=== PATIENT | male | born 1965 | race Caucasian/White ===

== ENCOUNTER 2019-08-23 11:56 | Emergency (ER) | payer OTHER ==
[~2019-08-23] VITALS: Ht 180.3 cm; Wt 81.6 kg
[2019-08-23 12:09] VITALS: BP_SYST 120
[2019-08-23] MEDS ORDERED: ALBU90AE INH (12:09)
[2019-08-23] MEDS ORDERED: ALBUTEROL SULFATE 0.083% 2.5 MG/3 ML VIAL.NEB INH ONE (12:15)
[2019-08-23] MEDS ORDERED: IPRATROPIUM BROM 0.5 MG/2.5 ML VIAL.NEB (ATROVENT) INH ONE (12:15)
[2019-08-23] MEDS ORDERED: PREDNISONE 20 MG TABLET PO ONE (12:15)
[2019-08-23 13:40] VITALS: BP_SYST 120
== END 2019-08-23 13:40 | disposition home or self-care (01) ==
LOC: SED 11:56
DX: J45.909 Unspecified asthma, uncomplicated (principal)
CPT/HCPCS: 71045; 99283; J7512; J7613

== ENCOUNTER 2022-02-17 14:58 | Emergency (ER) | payer OTHER ==
[~2022-02-17] VITALS: Ht 177.8 cm; Wt 74.8 kg
[~2022-02-17 14:58] MED LIST: ALBU90AE INH
[2022-02-17 15:12] VITALS: BP_SYST 159
--- NOTE | 2022-02-17 15:16 | NUR ---
Patient triaged and placed in waiting room. VSS and patient appears in no acute distress at this time. Accompanied by FRIEND, awaiting available bed, and MD notified of need for MSE.
[2022-02-17] MEDS ORDERED: ONDANSETRON 4 MG ODT TAB PO ONE (15:45)
[2022-02-17] MEDS ORDERED: OMEPRAZOLE Non-Formulary 20 MG CAPSULE.DR PO ONE (15:45)
[2022-02-17] MEDS ORDERED: MAG-AL HYDROX/SIMETH 30 ML UDC PO ONE (16:45)
[2022-02-17] MEDS ORDERED: DICYCLOMINE HCL 10 MG/5 ML SOLUTION PO ONE (16:45)
[2022-02-17] MEDS ORDERED: LIDOCAINE VISCOUS 2%, 15 ML UDC MM ONE (16:45)
[2022-02-17] MEDS ORDERED: KETOROLAC TROMETHAMINE 60 MG/2 ML VIAL IM ONE (17:30)
[2022-02-17] MEDS ORDERED: METOCLOPRAMIDE HCL 10 MG/2 ML VIAL IM ONE (17:30)
--- NOTE | 2022-02-17 19:00 | NUR ---
Patient to ER CHAIR for evaluation.
--- NOTE | 2022-02-17 19:01 | NUR ---
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
--- NOTE | 2022-02-17 21:02 | NUR ---
Patient moved to hallway bed for comfort.
[2022-02-17 21:23] LABS: HEMATOCRIT 43.8 % (36-54); HEMOGLOBIN 14.6 g/dL (14.0-18.0); MEAN CORPUSCULAR HEMOGLOBIN 28 pg (27-31); MEAN CORPUSCULAR HGB CONC 33 % (32-36); MEAN CORPUSCULAR VOLUME 85 fL (79.0-98.0); RED BLOOD CELL COUNT(AUTO) 5.18 MIL/uL (4.2-6.2); RED CELL DISTRIBUTION WIDTH 13.9 % (9.0-15.0); WHITE BLOOD COUNT (AUTO) 17.5 K/uL (4.8-10.8)
[2022-02-17 21:28] LABS: PLATELET COUNT (AUTO) 826 K/uL (130-430)
[2022-02-17 21:46] LABS: BAND % (MANUAL) 1 % (0-6); LYMPHOCYTES % (MANUAL) 7 % (20-46); MONOCYTES % (MANUAL) 3 % (0-11)
[2022-02-17 21:57] LABS: CALCIUM 9.8 mg/dL (8.4-11.0); CREATININE 1.06 mg/dL (0.55-1.30)
[2022-02-17 22:02] LABS: ALBUMIN 3.2 g/dL (3.4-4.8); TOTAL BILIRUBIN 0.3 mg/dL (0.0-1.0)
--- NOTE | 2022-02-17 22:03 | NUR ---
ER at bedside examining patient.
[2022-02-17] MEDS ORDERED: NACL 0.9% 1,000 ML IV ONE (22:15)
[2022-02-17] MEDS ORDERED: KETOROLAC TROMETHAMINE 30 MG VIAL IVP ONE (22:15)
[2022-02-17] MEDS ORDERED: PANTOPRAZOLE SODIUM 40 MG/VIAL (PROTONIX) IVP ONE (22:15)
[2022-02-17] MEDS ORDERED: ONDANSETRON HCL 4 MG/2 ML VIAL IVP ONE (22:15)
[2022-02-18] MEDS ORDERED: DICYCLOMINE HCL 20 MG/2 ML AMP IM ONE
--- NOTE | 2022-02-18 00:01 | NUR ---
ER at bedside examining patient.
[2022-02-18] MEDS ORDERED: NACL 0.9% 1,000 ML IV ONE ×2 (00:15→05:15)
--- NOTE | 2022-02-18 00:29 | NUR ---
Patient given GI cocktail and spilled it all over the bed. Patient states he is in pain and does not want to take the medication.
[2022-02-18] MEDS ORDERED: LIDOCAINE VISCOUS 2%, 15 ML UDC ONE (03:25)
[2022-02-18] MEDS ORDERED: MAG-AL HYDROX/SIMETH 30 ML UDC ONE (03:25)
[2022-02-18] MEDS ORDERED: MAG-AL HYDROX/SIMETH 30 ML UDC PO ONE ×2 (03:30)
[2022-02-18] MEDS ORDERED: LIDOCAINE VISCOUS 2%, 15 ML UDC MM ONE ×2 (03:30)
--- NOTE | 2022-02-18 03:31 | NUR ---
report given to NIGEL Castro
[2022-02-18] MEDS ORDERED: KETAMINE HCL 500 MG/10 ML VIAL IVP ONE (04:15)
[2022-02-18] MEDS ORDERED: LORazepam 2 MG/ML VIAL ONE (04:35)
--- NOTE | 2022-02-18 04:40 | NUR ---
PT STARTED HAVING REACTION TO KETAMINE ADMINISTRATION ORDERED BY . MD NOTIFIED AND VERBAL ORDER OF ATIVAN 2MG IVP OBTAIN.
[2022-02-18] MEDS ORDERED: LORazepam 2 MG/ML VIAL IVP ONE (04:45)
--- NOTE | 2022-02-18 04:47 | NUR ---
PT NOW RESTING IN BED, AWAKES TO VERBAL AND PSYCHICAL STIMULI. A&O X4. PT DESATS TO 86% DURING SLEEP, PUT ON 2L NC NOW SATING AT 95%. MADE AWARE. 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
--- NOTE | 2022-02-18 07:15 | NUR ---
REPORT GIVEN TO IVA MANNING TO ASSUME CARE.
[2022-02-18 09:30] VITALS: BP_SYST 145
--- NOTE | 2022-02-18 09:30 | NUR ---
Patient given written and verbal discharge instructions and verbalizes understanding. ER MD discussed with patient the results and treatment provided. Patient in stable condition. ID arm band removed. no Rx given. Patient educated on pain management and to follow up with PMD. Pain Scale 0. Opportunity for questions provided and answered. Medication side effect fact sheet provided.
== END 2022-02-18 09:30 | disposition home or self-care (01) ==
LOC: SED 14:58
DX: R10.13 Epigastric pain (principal); R11.10 Vomiting, unspecified; Z79.899 Other long term (current) drug therapy
CPT/HCPCS: 99285; 96374; 96375 ×2; 96361 ×2; 85027; 80053; 83690; 85007; 84484; 36415; 93005; 74021; 83605; 96372 ×2; 74176; 76376; Q0162; J2001 ×2; J1885 ×2; J2765; J2405; C9113; J7030 ×2; J0500; J2060